=== PATIENT | male | born 1955 | race Caucasian/White ===

== ENCOUNTER 2025-01-03 13:47 | Inpatient (IN) | payer OTHER ==
[~2025-01-03] VITALS: Ht 152.4 cm; Wt 59.0 kg
[2025-01-03] MEDS: KETOROLAC 30MG/ML VIAL IM ONE (18:08)
[2025-01-03] MEDS: METHOCARBAMOL 500MG TABLET PO ONE (18:09)
[2025-01-03 18:15] LABS: CLARITY URINE CLOUDY (CLEAR); COLOR URINE YELLOW (YELLOW); GLUCOSE URINE NEGATIVE (NEGATIVE); KETONES URINE NEGATIVE (NEGATIVE); LEUKOCYTE ESTERASE URINE NEGATIVE (NEGATIVE); NITRITE URINE NEGATIVE (NEGATIVE); OCCULT BLOOD URINE NEGATIVE (NEGATIVE); PROTEIN URINE NEGATIVE (NEGATIVE); SPECIFIC GRAVITY URINE 1.016 (1.005-1.030); UROBILINOGEN URINE 0.2 E.U./dL (0.2-1.0)
[2025-01-03 18:29] LABS: BASOPHILS % 0.2 % (0.0-2.0); EOSINOPHILS % 0.4 % (0.0-5.0); HEMATOCRIT. 39.9 % (42.0-52.0); HEMOGLOBIN. 13.2 g/dL (14.0-18.0); LYMPHOCYTES % 16.5 % (20.0-50.0); MEAN CORPUSCULAR HEMOGLOBIN 28.2 pg (28.0-32.0); MEAN CORPUSCULAR VOLUME 85.4 fL (80.0-94.0); MONOCYTES % 4.9 % (2.0-8.0); PLATELET 265 x1000/uL (130-400); RED BLOOD CELL COUNT 4.68 mill/uL (4.7-6.1); RED CELL DISTRIBUTION WIDTH 16.5 % (11.6-14.6); WHITE BLOOD COUNT 10.2 x1000/uL (4.5-11.0)
[2025-01-03 18:37] LABS: CHLORIDE 94 mEq/L (98-107); INR 0.9; PROTHROMBIN TIME 10.3 sec (9.6-11.0); SODIUM 130 mEq/L (136-145)
[2025-01-03 18:38] LABS: CALCIUM 9.2 mg/dL (8.7-10.4); CARBON DIOXIDE 29 mEq/L (21-32)
[2025-01-03 18:43] LABS: CREATININE 0.5 mg/dL (0.6-1.3); GLUCOSE 174 mg/dL (70-105); UREA NITROGEN BLOOD 17 mg/dL (9-23)
[2025-01-03 18:45] LABS: ALANINE AMINOTRANSFERASE 24 IU/L (10-49); ALBUMIN 4.2 g/dL (3.2-4.8); ASPARTATE AMINOTRANSFERASE 27 IU/L (<34); BILIRUBIN DIRECT 0.1 mg/dL (<=3.0); BILIRUBIN TOTAL 0.5 mg/dL (0.1-1.0); PROTEIN TOTAL 7.1 g/dL (6.0-8.3)
[2025-01-03 18:47] LABS: TROPONIN I HIGH SENSITIVITY < 4 ng/L (3.0-53)
[2025-01-03 19:26] LABS: BACTERIA URINE 1+; RBC URINE NONE SEEN /hpf (0-2); SQUAMOUS EPITHELIAL CELL URINE FEW /lpf (RARE/1+); WBC URINE 0-2 /hpf (0-2)
[2025-01-03] MEDS: SODIUM CHLORIDE 0.9% 1,000 ML IV ONE (19:45)
[2025-01-03 20:00] VITALS: BP 123/79; PULSE 68; RESP 16; TEMP 36.3; O2SAT 96
[2025-01-03] MEDS: HYDROCODONE/ACETAMINOPHEN 5/325MG TABLET PO ONE (20:21)
[2025-01-03] MEDS: MORPHINE SULFATE 4 MG/ML INJ (FOR IV/IM USE) IV ONE (20:21)
[2025-01-03 22:00] VITALS: BP 123/79; PULSE 68; RESP 16; TEMP 36.3
[2025-01-03] MEDS ORDERED: ONDANSETRON HCL 4MG/2ML INJ IV PRN (22:45)
[2025-01-03] MEDS: HYDROCODONE/ACETAMINOPHEN 10/325MG TABLET PO PRN (23:40)
[2025-01-04] VITALS: BP 119/51; PULSE 71; RESP 18; TEMP 36; O2SAT 95
[2025-01-04 04:00] VITALS: BP 129/50; PULSE 69; RESP 18; TEMP 36.7; O2SAT 96
[2025-01-04] MEDS: PANTOPRAZOLE 40MG DR TABLET PO SCH (06:03)
[2025-01-04 07:14] LABS: CARBON DIOXIDE 26 mEq/L (21-32); CHLORIDE 94 mEq/L (98-107); POTASSIUM 4.3 mEq/L (3.5-5.1); SODIUM 128 mEq/L (136-145)
[2025-01-04 07:20] LABS: CREATININE 0.5 mg/dL (0.6-1.3); GLUCOSE 143 mg/dL (70-105); UREA NITROGEN BLOOD 15 mg/dL (9-23)
[2025-01-04 07:49] LABS: BASOPHILS % 0.3 % (0.0-2.0); EOSINOPHILS % 0.4 % (0.0-5.0); HEMATOCRIT. 37.3 % (42.0-52.0); HEMOGLOBIN. 12.3 g/dL (14.0-18.0); MEAN CORPUSCULAR HEMOGLOBIN 27.7 pg (28.0-32.0); MEAN CORPUSCULAR HGB CONC 32.9 g/dL (31.0-37.0); MEAN CORPUSCULAR VOLUME 84.2 fL (80.0-94.0); MEAN PLATELET VOLUME 8.3 fl (7.4-10.4); MONOCYTES % 6.6 % (2.0-8.0); NEUTROPHILS % 71.7 % (40.0-76.0); PLATELET 235 x1000/uL (130-400); RED BLOOD CELL COUNT 4.43 mill/uL (4.7-6.1); RED CELL DISTRIBUTION WIDTH 16.3 % (11.6-14.6); WHITE BLOOD COUNT 7.4 x1000/uL (4.5-11.0)
[2025-01-04 08:00] VITALS: BP 130/60; PULSE 70; RESP 20; TEMP 36.2; O2SAT 98
[2025-01-04] MEDS ORDERED: TAMSULOSIN HCL 0.4MG SR CAPSULE PO SCH (10:30)
[2025-01-04] MEDS ORDERED: FINASTERIDE 5MG TABLET PO SCH (10:30)
[2025-01-04 12:00] VITALS: BP 115/49; PULSE 72; RESP 20; TEMP 36.2; O2SAT 99
[2025-01-04] MEDS: FINASTERIDE 5MG TABLET PO SCH (13:32)
[2025-01-04] MEDS: TAMSULOSIN HCL 0.4MG SR CAPSULE PO SCH (13:33)
[2025-01-04 16:00] VITALS: BP 108/48; PULSE 80; RESP 20; TEMP 36.2; O2SAT 99
[2025-01-04] MEDS ORDERED: DEXTROSE 50% WATER 50ML SYRINGE IV PRN (16:30)
[2025-01-04] MEDS: BLOOD SUGAR DIAGNOSTIC STRIP TEST SCH (17:06)
[2025-01-04] MEDS: INSULIN LISPRO 100 UNITS/ML SUBCUT SCH (17:34)
[2025-01-04 20:00] VITALS: BP 104/48; PULSE 89; RESP 18; TEMP 36.6; O2SAT 95
[2025-01-05] VITALS: BP 110/80; PULSE 62; RESP 18; TEMP 36.8; O2SAT 96
[2025-01-05 04:00] VITALS: BP 112/82; PULSE 83; RESP 18; TEMP 36.5
[2025-01-05 08:00] VITALS: BP 122/54; PULSE 80; RESP 20; TEMP 36.7; O2SAT 100
[2025-01-05] MEDS: ACETAMINOPHEN 325MG TABLET PO PRN (08:54)
[2025-01-05] MEDS ORDERED: SODIUM CHLORIDE 0.9% 1,000 ML IV SCH (10:00)
[2025-01-05 10:52] LABS: BASOPHILS % 0.2 % (0.0-2.0); EOSINOPHILS % 0.2 % (0.0-5.0); HEMATOCRIT. 36.3 % (42.0-52.0); HEMOGLOBIN. 11.9 g/dL (14.0-18.0); LYMPHOCYTES % 12.4 % (20.0-50.0); MEAN CORPUSCULAR HEMOGLOBIN 28.2 pg (28.0-32.0); MEAN CORPUSCULAR HGB CONC 32.7 g/dL (31.0-37.0); MEAN CORPUSCULAR VOLUME 86.2 fL (80.0-94.0); MEAN PLATELET VOLUME 7.6 fl (7.4-10.4); MONOCYTES % 5.4 % (2.0-8.0); NEUTROPHILS % 81.8 % (40.0-76.0); PLATELET 227 x1000/uL (130-400); RED BLOOD CELL COUNT 4.22 mill/uL (4.7-6.1); RED CELL DISTRIBUTION WIDTH 16.2 % (11.6-14.6); WHITE BLOOD COUNT 7.2 x1000/uL (4.5-11.0)
[2025-01-05 10:58] LABS: CHLORIDE 94 mEq/L (98-107); SODIUM 128 mEq/L (136-145)
[2025-01-05 10:59] LABS: CALCIUM 9.1 mg/dL (8.7-10.4); CARBON DIOXIDE 25 mEq/L (21-32)
[2025-01-05 11:04] LABS: CREATININE 0.5 mg/dL (0.6-1.3); GLUCOSE 231 mg/dL (70-105); UREA NITROGEN BLOOD 17 mg/dL (9-23)
[2025-01-05] MEDS: DEXT 5%/LACTATED RINGERS 1,000 ML IV SCH (11:31)
[2025-01-05] MEDS: DEXAMETHASONE 4MG/ML 1ML VIAL IV SCH (11:31)
[2025-01-05 12:00] VITALS: BP 102/54; PULSE 93; RESP 18; TEMP 36.3; O2SAT 98
[2025-01-05 16:00] VITALS: BP 106/47; PULSE 89; RESP 16; TEMP 36.3; O2SAT 96
[2025-01-05 20:00] VITALS: BP 110/50; PULSE 80; RESP 18; TEMP 36.1; O2SAT 100
[2025-01-06] VITALS (26 sets, daily range): BP systolic 77–147; BP diastolic 44–67; PULSE 47–79; RESP 7–20; TEMP 36.1–37.1; O2SAT 94–100
[2025-01-06 09:18] LABS: HEMATOCRIT 36.4 % (42.0-52.0); HEMOGLOBIN 12.2 g/dL (14.0-18.0); MEAN CORPUSCULAR HEMOGLOBIN 28.3 pg (28.0-32.0); MEAN CORPUSCULAR HGB CONC 33.6 g/dL (31.0-37.0); MEAN CORPUSCULAR VOLUME 84.4 fL (80.0-94.0); PLATELET 242 x1000/uL (130-400); RED BLOOD CELL COUNT 4.32 mill/uL (4.7-6.1); RED CELL DISTRIBUTION WIDTH 15.8 % (11.6-14.6); WHITE BLOOD COUNT 7.3 x1000/uL (4.5-11.0)
[2025-01-06 09:29] LABS: CHLORIDE 99 mEq/L (98-107); POTASSIUM 4.1 mEq/L (3.5-5.1); SODIUM 132 mEq/L (136-145)
[2025-01-06 09:30] LABS: CALCIUM 9.1 mg/dL (8.7-10.4); CARBON DIOXIDE 28 mEq/L (21-32)
[2025-01-06 09:35] LABS: CREATININE 0.5 mg/dL (0.6-1.3); GLUCOSE 271 mg/dL (70-105); UREA NITROGEN BLOOD 15 mg/dL (9-23)
[2025-01-06] MEDS ORDERED: THROMBIN (BOVINE) 5000 UNITS/VIAL TOP ONE (09:38)
[2025-01-06] MEDS ORDERED: GENTAMICIN SULF 40MG/ML 2ML VIAL ONE (09:39)
[2025-01-06] MEDS ORDERED: LIDOCAINE HCL/EPINEPHRINE 1%-EPI 1:100,000 20ML VIAL ONE (09:39)
[2025-01-06] MEDS ORDERED: ROCURONIUM BROMIDE 10MG/ML VIAL 5ML IV ONE ×2 (11:44→12:54)
[2025-01-06] MEDS ORDERED: FENTANYL CITRATE/PF 50MCG/ML 5ML VIAL ONE (11:45)
[2025-01-06] MEDS ORDERED: PROPOFOL 200MG/20ML VIAL IV ONE (11:45)
[2025-01-06] MEDS ORDERED: EPHEDRINE SULFATE 50MG/ML VIAL ONE (12:54)
[2025-01-06] MEDS ORDERED: FENTANYL CITRATE/PF 50MCG/ML 2ML VIAL ONE (13:53)
[2025-01-06] MEDS ORDERED: NEOSTIGMINE METHYLSULFATE 1MG/ML 10 ML VIAL ONE (14:34)
[2025-01-06] MEDS ORDERED: GLYCOPYRROLATE 0.2 MG/ML 2ML VIAL ONE ×2 (14:34→15:04)
[2025-01-06] MEDS ORDERED: SUGAMMADEX SODIUM 200MG/2ML VIAL IV ONE (15:04)
[2025-01-06] MEDS ORDERED: ONDANSETRON HCL 4MG/2ML INJ ONE (15:04)
[2025-01-06] MEDS ORDERED: NALOXONE HCL 0.4MG/ML VIAL IV PRN (15:30)
[2025-01-06] MEDS: CEFAZOLIN 1000MG PREMIX 50ML IV SCH (17:09)
[2025-01-06] MEDS: NICARDIPINE 100 MG in SODIUM CHLORIDE 0.9% 60 ML IV PRN (17:09)
[2025-01-06] MEDS: MORPHINE SULFATE 4 MG/ML INJ (FOR IV/IM USE) IV PRN (17:09)
[2025-01-06] MEDS ORDERED: CEFAZOLIN SODIUM 1000MG/VIAL IV SCH (22:00)
[2025-01-07] VITALS (54 sets, daily range): BP systolic 98–130; BP diastolic 45–97; PULSE 49–100; RESP 7–27; TEMP 36.3–36.7; O2SAT 95–100
[2025-01-07 06:03] LABS: BASOPHILS % 0.2 % (0.0-2.0); HEMATOCRIT. 33.2 % (42.0-52.0); HEMOGLOBIN. 11.1 g/dL (14.0-18.0); LYMPHOCYTES % 7.9 % (20.0-50.0); MEAN CORPUSCULAR HGB CONC 33.3 g/dL (31.0-37.0); MEAN PLATELET VOLUME 8.2 fl (7.4-10.4); MONOCYTES % 3.8 % (2.0-8.0); NEUTROPHILS % 88.1 % (40.0-76.0); PLATELET 234 x1000/uL (130-400); RED BLOOD CELL COUNT 3.95 mill/uL (4.7-6.1); RED CELL DISTRIBUTION WIDTH 15.8 % (11.6-14.6); WHITE BLOOD COUNT 9.2 x1000/uL (4.5-11.0)
[2025-01-07 06:15] LABS: CARBON DIOXIDE 27 mEq/L (21-32); CHLORIDE 98 mEq/L (98-107); POTASSIUM 4.3 mEq/L (3.5-5.1); SODIUM 133 mEq/L (136-145)
[2025-01-07 06:16] LABS: CALCIUM 8.9 mg/dL (8.7-10.4)
[2025-01-07 06:21] LABS: CREATININE 0.5 mg/dL (0.6-1.3); GLUCOSE 292 mg/dL (70-105); UREA NITROGEN BLOOD 16 mg/dL (9-23)
[2025-01-08] VITALS (24 sets, daily range): BP systolic 104–127; BP diastolic 42–66; PULSE 52–75; RESP 9–19; TEMP 36.4–37.1; O2SAT 94–98
[2025-01-08 06:00] LABS: BASOPHILS % 0.2 % (0.0-2.0); EOSINOPHILS % 0.1 % (0.0-5.0); HEMATOCRIT. 32.6 % (42.0-52.0); HEMOGLOBIN. 11.1 g/dL (14.0-18.0); LYMPHOCYTES % 14.9 % (20.0-50.0); MEAN CORPUSCULAR HEMOGLOBIN 28.5 pg (28.0-32.0); MEAN CORPUSCULAR VOLUME 83.8 fL (80.0-94.0); MEAN PLATELET VOLUME 7.7 fl (7.4-10.4); MONOCYTES % 7.3 % (2.0-8.0); NEUTROPHILS % 77.5 % (40.0-76.0); PLATELET 230 x1000/uL (130-400); RED CELL DISTRIBUTION WIDTH 16.4 % (11.6-14.6); WHITE BLOOD COUNT 7.5 x1000/uL (4.5-11.0)
[2025-01-08 06:06] LABS: CHLORIDE 97 mEq/L (98-107); POTASSIUM 3.9 mEq/L (3.5-5.1); SODIUM 133 mEq/L (136-145)
[2025-01-08 06:07] LABS: CALCIUM 8.5 mg/dL (8.7-10.4); CARBON DIOXIDE 29 mEq/L (21-32)
[2025-01-08 06:12] LABS: CREATININE 0.5 mg/dL (0.6-1.3); GLUCOSE 246 mg/dL (70-105); UREA NITROGEN BLOOD 14 mg/dL (9-23)
[2025-01-09 08:00] VITALS: BP 133/61; PULSE 63; RESP 18; TEMP 36.6; O2SAT 96
[2025-01-09 08:48] LABS: CHLORIDE 97 mEq/L (98-107); POTASSIUM 4.2 mEq/L (3.5-5.1); SODIUM 131 mEq/L (136-145)
[2025-01-09 08:49] LABS: CARBON DIOXIDE 27 mEq/L (21-32)
[2025-01-09 08:50] LABS: CALCIUM 8.5 mg/dL (8.7-10.4)
[2025-01-09 08:54] LABS: CREATININE 0.4 mg/dL (0.6-1.3)
[2025-01-09 08:55] LABS: GLUCOSE 140 mg/dL (70-105); UREA NITROGEN BLOOD 14 mg/dL (9-23)
[2025-01-09 12:00] VITALS: BP 107/53; PULSE 75; RESP 18; TEMP 36.5; O2SAT 97
[2025-01-09] MEDS: DOCUSATE SODIUM 100MG CAPSULE PO SCH (15:01)
[2025-01-09 16:00] VITALS: BP 128/52; PULSE 68; RESP 18; TEMP 36.3; O2SAT 99
[2025-01-09 16:58] LABS: BASOPHILS % 0.1 % (0.0-2.0); HEMOGLOBIN. 11.3 g/dL (14.0-18.0); LYMPHOCYTES % 17.3 % (20.0-50.0); MEAN CORPUSCULAR HGB CONC 32.3 g/dL (31.0-37.0); MEAN CORPUSCULAR VOLUME 83.7 fL (80.0-94.0); MEAN PLATELET VOLUME 8.3 fl (7.4-10.4); MONOCYTES % 3.6 % (2.0-8.0); PLATELET 228 x1000/uL (130-400); RED BLOOD CELL COUNT 4.18 mill/uL (4.7-6.1); WHITE BLOOD COUNT 6.4 x1000/uL (4.5-11.0)
[2025-01-09 20:00] VITALS: BP 114/59; PULSE 84; RESP 18; TEMP 36.6; O2SAT 99
[2025-01-10] VITALS: BP 109/47; PULSE 77; RESP 18; TEMP 36.9; O2SAT 96
[2025-01-10 04:00] VITALS: BP 121/50; PULSE 66; RESP 18; TEMP 37.1; O2SAT 97
[2025-01-10 08:00] VITALS: BP 113/58; PULSE 67; RESP 17; TEMP 36; O2SAT 97
[2025-01-10] MEDS: HYDROCODONE/ACETAMINOPHEN 7.5/325MG TABLET PO PRN (10:47)
[2025-01-10 12:00] VITALS: BP 111/50; PULSE 77; RESP 18; TEMP 36.3; O2SAT 98
[2025-01-10 16:00] VITALS: BP 116/53; PULSE 78; RESP 18; TEMP 36.3; O2SAT 98
[2025-01-10 20:00] VITALS: BP 116/57; PULSE 71; RESP 18; TEMP 36.7; O2SAT 100
[2025-01-11] VITALS: BP 114/50; PULSE 69; RESP 18; TEMP 36.7; O2SAT 98
[2025-01-11 04:00] VITALS: BP 117/55; PULSE 72; RESP 16; TEMP 36.6; O2SAT 97
[2025-01-11 08:00] VITALS: BP 120/53; PULSE 63; RESP 16; TEMP 35.6; O2SAT 95
[2025-01-11 12:00] VITALS: BP 124/76; PULSE 67; RESP 18; TEMP 36.1; O2SAT 96
[2025-01-11 16:00] VITALS: BP 121/51; PULSE 69; RESP 18; TEMP 35.6; O2SAT 97
[2025-01-11 20:00] VITALS: BP 137/56; PULSE 82; RESP 20; TEMP 36.5; O2SAT 98
[2025-01-12] VITALS: BP 123/56; PULSE 68; RESP 20; TEMP 36.6; O2SAT 98
[2025-01-12 08:00] VITALS: BP 120/58; PULSE 64; RESP 19; TEMP 36.4; O2SAT 97
[2025-01-12 12:00] VITALS: BP 100/48; PULSE 72; RESP 19; TEMP 36.4; O2SAT 97
[2025-01-12 16:00] VITALS: BP 113/47; PULSE 74; RESP 20; TEMP 37; O2SAT 98
[2025-01-12 20:00] VITALS: BP 117/47; PULSE 72; RESP 20; TEMP 36.5; O2SAT 99
[2025-01-13] VITALS: BP 117/51; PULSE 64; RESP 20; TEMP 35.9; O2SAT 97
[2025-01-13 07:06] LABS: BASOPHILS % 0.3 % (0.0-2.0); EOSINOPHILS % 2.4 % (0.0-5.0); HEMATOCRIT. 33.9 % (42.0-52.0); HEMOGLOBIN. 11.4 g/dL (14.0-18.0); LYMPHOCYTES % 24.6 % (20.0-50.0); MEAN CORPUSCULAR HEMOGLOBIN 28.7 pg (28.0-32.0); MEAN CORPUSCULAR HGB CONC 33.6 g/dL (31.0-37.0); MEAN CORPUSCULAR VOLUME 85.6 fL (80.0-94.0); MEAN PLATELET VOLUME 7.1 fl (7.4-10.4); MONOCYTES % 5.6 % (2.0-8.0); NEUTROPHILS % 67.1 % (40.0-76.0); PLATELET 273 x1000/uL (130-400); RED BLOOD CELL COUNT 3.96 mill/uL (4.7-6.1); RED CELL DISTRIBUTION WIDTH 16.2 % (11.6-14.6); WHITE BLOOD COUNT 5.3 x1000/uL (4.5-11.0)
[2025-01-13 07:08] LABS: CHLORIDE 98 mEq/L (98-107); POTASSIUM 4.1 mEq/L (3.5-5.1); SODIUM 135 mEq/L (136-145)
[2025-01-13 07:09] LABS: CARBON DIOXIDE 30 mEq/L (21-32)
[2025-01-13 07:10] LABS: CALCIUM 8.7 mg/dL (8.7-10.4)
[2025-01-13 07:14] LABS: CREATININE 0.4 mg/dL (0.6-1.3); GLUCOSE 126 mg/dL (70-105)
[2025-01-13 07:15] LABS: UREA NITROGEN BLOOD 12 mg/dL (9-23)
[2025-01-13 07:17] LABS: PHOSPHORUS 2.4 mg/dL (2.5-4.9)
[2025-01-13 08:00] VITALS: BP 122/68; PULSE 61; RESP 19; TEMP 36.4; O2SAT 97
[2025-01-13] MEDS: SODIUM PHOSPHATE 15 MMOL in DEXT 5% WATER 245 ML IV NR (11:19)
[2025-01-13 12:00] VITALS: BP 106/49; PULSE 66; RESP 18; TEMP 36.6; O2SAT 95
[2025-01-13 16:00] VITALS: BP 113/40; PULSE 78; RESP 19; TEMP 36.7; O2SAT 98
[2025-01-13 20:00] VITALS: BP 114/55; PULSE 72; RESP 20; TEMP 35.9; O2SAT 97
[2025-01-14] VITALS (7 sets, daily range): BP systolic 110–130; BP diastolic 41–56; PULSE 60–76; RESP 18–20; TEMP 35.7–36.5; O2SAT 76–99
[2025-01-14] MEDS ORDERED: FINA-37 MT (11:20)
[2025-01-14] MEDS ORDERED: METF-414 MT (11:20)
[2025-01-14] MEDS ORDERED: TAMS-11 MT (11:20)
[2025-01-15] VITALS: BP 123/50; PULSE 79; RESP 17; TEMP 35.8; O2SAT 98
== END 2025-01-15 02:20 | disposition home health service (06) | DRG 820 ==
LOC: ER 13:47 → 7EST 22:01 → MICUNO 01-06 15:24 → 6EST 01-08 09:53
PROVIDERS: ADMIT Internal Medicine; ATTEND Internal Medicine
PROC: 00BT0ZZ Excision of Spinal Meninges, Open Approach (ICD-10-PCS; principal; 2025-01-06)
PROC: 00NX0ZZ Release Thoracic Spinal Cord, Open Approach (ICD-10-PCS; 2025-01-06)
DX: C83.89 Other non-follicular lymphoma, extranodal and solid organ sites (principal); J96.01 Acute respiratory failure with hypoxia; E87.1 Hypo-osmolality and hyponatremia; M48.56XA Collapsed vertebra, not elsewhere classified, lumbar region, initial encounter for fracture; G82.20 Paraplegia, unspecified; G95.20 Unspecified cord compression; M48.04 Spinal stenosis, thoracic region; M48.02 Spinal stenosis, cervical region; E11.9 Type 2 diabetes mellitus without complications; E78.5 Hyperlipidemia, unspecified; E86.1 Hypovolemia; N13.9 Obstructive and reflux uropathy, unspecified; G89.29 Other chronic pain; R32 Unspecified urinary incontinence; R26.2 Difficulty in walking, not elsewhere classified; M54.50 Low back pain, unspecified
CPT/HCPCS: 36415; 71045; 72070; 72131; 72141; 72146; 72148; 74176; 76000; 80048; 80076; 81003; 82962; 83036; 83735; 83880; 84100; 84484; 85025; 85027; 86850; 86900; 87070; 87075; 88304; 88305; 88312; 88331; 93005; 95925; 95926; 95928; 95929; 97110; 97116; 97163; 97166; 97530; 97535; 97542; 99291; A4606; J0690; J1100; J1580; J1815; J1885; J2004; J2270; J2405; J2704; J2710; J3010; J3490; J7030; J7050; J7060; J7121